=== PATIENT | male | born 1945 | race Caucasian/White ===

== ENCOUNTER 2017-09-22 07:14 | Day surgery (SDC) | payer MEDICARE ==
[~2017-09-22 07:14] MED LIST: ASPI325 PO; ATOR20 PO; BLOOD PRESSURE; CHOL10002 PO; DIABETIC; FURO40 PO; LISI5 PO; MELA3 PO; METF500 PO; MULVIT PO; POTCHL20ER PO
== END 2017-09-22 22:39 | disposition home or self-care (01) ==
LOC: ATC 07:14
DX: I12.9 Hypertensive chronic kidney disease with stage 1 through stage 4 chronic kidney disease, or unspecified chronic kidney disease (principal); E11.22 Type 2 diabetes mellitus with diabetic chronic kidney disease; N18.4 Chronic kidney disease, stage 4 (severe); D63.1 Anemia in chronic kidney disease; N25.81 Secondary hyperparathyroidism of renal origin; E86.9 Volume depletion, unspecified; E78.00 Pure hypercholesterolemia, unspecified
CPT/HCPCS: 36415; 36430; 86850; 86870; 86900; 86901; 86922; 96374; J1940; J7030; P9016

== ENCOUNTER → 2018-03-16 | Outpatient (CLI) | payer MEDICARE ==
[2018-03-16 16:48] LABS: Percent Saturation 27.4 % (20.0-50.0)
== END | disposition home or self-care (01) ==
LOC: LAB SHORT 15:39 → LAB 15:39
PROVIDERS: Internal Medicine Hematology & Oncology
DX: D50.9 Iron deficiency anemia, unspecified (principal)
CPT/HCPCS: 82728; 83540; 83550

== ENCOUNTER 2019-07-13 15:35 | Inpatient (IN) | payer MEDICARE ==
[~2019-07-13] VITALS: Ht 165.1 cm; Wt 52.1 kg
[~2019-07-13 15:35] MED LIST changes: -ASPI325 PO; +ASPI325EC PO; -CHOL10002 PO; +Daily Multiple1 EACH PO; -MULVIT PO; +VITAMIN D31000 UNI1 PO
[2019-07-13 16:38] LABS: BASOPHILS ABSOLUTE AUTO 0.04 K/mm3 (0.00-0.23); BASOPHILS PERCENT AUTO 1 % (0-2); EOSINOPHILS ABSOLUTE AUTO 0.04 K/mm3 (0.00-0.68); EOSINOPHILS PERCENT AUTO 1 % (0-6); Hematocrit 40.2 % (37.0-53.0); Hemoglobin 13.5 g/dL (13.5-17.5); IMMATURE GRAN ABSOLUTE AUTO 0.01 K/mm3 (0.00-0.10); IMMATURE GRAN PERCENT AUTO 0 % (0-1); LYMPHOCYTES ABSOLUTE AUTO 0.66 K/mm3 (0.84-5.20); LYMPHOCYTES PERCENT AUTO 15 % (21-46); MONOCYTES ABSOLUTE AUTO 0.34 K/mm3 (0.16-1.47); MONOCYTES PERCENT AUTO 8 % (4-13); Mean Corpuscular HGB 35.3 pg (26.0-34.0); Mean Corpuscular HGB Conc 33.6 g/dL (31.5-36.5); Mean Corpuscular Volume 105 fL (80-100); Mean Platelet Volume 9.5 fL (9.1-12.4); NEUTROPHILS ABSOLUTE AUTO 3.37 K/mm3 (1.96-9.15); NEUTROPHILS PERCENT AUTO 76 % (41-73); Platelet Count 198 K/mm3 (150-400); RDW Coefficient Variation 12.9 % (11.7-14.2); RDW Standard Deviation 49.9 fL (35.1-46.3); Red Blood Cell Count 3.82 M/mm3 (4.30-5.90); White Blood Cell Count 4.46 K/mm3 (4.00-11.30)
[2019-07-13 17:01] LABS: Troponin I 0.02 ng/mL (0.000-0.040)
[2019-07-13 17:16] LABS: Albumin, Blood 4.8 g/dL (3.4-5.0); Albumin/Globulin Ratio 1.1 (0.8-1.8); Bilirubin, Total 0.7 mg/dL (0.1-1.0); Bun/Creatinine Ratio 15.2 (12.0-20.0); Calcium, Blood 5.9 mg/dL (8.5-10.1); Creatinine, Blood 3.41 mg/dL (0.60-1.20); Globulin, Blood 4.5 g/dL (2.2-4.0); Potassium, Blood 5.2 mmol/L (3.5-5.5); Total Protein, Blood 9.3 g/dL (6.4-8.2)
[2019-07-13] MEDS ORDERED: AMLODIPINE BESYL5 MG PO (18:21)
[2019-07-13 18:35] LABS: Magnesium, Blood 2.5 mg/dL (1.6-2.4); Phosphorus, Blood 4.1 mg/dL (2.5-4.9)
[2019-07-13 18:48] LABS: CPK Creatine Kinase 268 U/L (39-308)
[2019-07-13] MEDS ORDERED: LOVASTATIN20 MG PO (19:03)
[2019-07-13] MEDS ORDERED: FUROSEMIDE40 MG PO (19:03)
[2019-07-13 20:26] LABS: Source, Urine Clean Catch
[2019-07-13 20:29] LABS: Bilirubin, Urine Neg (Neg); Blood, Urine 3+ (Neg); Glucose Qualitative, Urine Neg (Neg); Ketones, Urine 1+ (Neg); Leukocyte Esterase, Urine Neg (Neg); Nitrite, Urine Neg (Neg); Protein, Urine 4+ (Neg); Specific Gravity, Urine 1.015 (1.003-1.022); Urobilinogen, Urine NORM (Normal)
[2019-07-13 20:44] LABS: Appearance, Urine Clear (Clear); Color, Urine Yellow (P-Yellow)
[2019-07-13 20:45] LABS: Bacteria Mod /hpf; Squamous Epithelial Cells Rare /hpf (Few)
[2019-07-13 20:46] LABS: Granular Casts 0-2 /lpf (0)
--- NOTE | 2019-07-14 04:15 | NUR ---
SHIFT SUMMARY PT WAS NEW ER ADMIT THIS SHIFT (2099), NO ACUTE CHANGES SINCE ASSUMING CARE, A&O, NO C/O ANY KIND, SLEPT T/O NIGHT & AT THIS TIME, CALL LIGHT IN REACH, WILL CONT TO MONITOR UNTIL REPORT GIVEN TO DAY RN.
[2019-07-14 05:55] LABS: Creatinine, Blood 3.34 mg/dL (0.60-1.20); Potassium, Blood 4.6 mmol/L (3.5-5.5)
[2019-07-14] MEDS ORDERED: Lovastatin20 MG PO (14:46)
--- NOTE | 2019-07-14 18:13 | NUR ---
SHIFT SUMMARY PT AXO, PLEASANT AND COOPERATIVE WITH CARE THOUGH [place]. VSS THOUGH PT HYPERTENSIVE, DR LEAVITT NOTIFIED, MEDICATED PER EMAR. PT VOIDING IN URINAL INDEPENDENTLY. BLADDER SCAN PVR OF [address] GUERRERO CONSULTED, NEW ORDERS PLACED. IV PATENT AND SALINE LOCKED. BED IN LOW POSITION, CALL LIGHT WITHIN REACH. PT AND OT ORDERED, AWAITING EVAL AT THIS TIME. PT DENIES PAIN.
--- NOTE | 2019-07-15 04:19 | NUR ---
SHIFT SUMMARY PT HAS HAD NO ACUTE CHANGES THIS SHIFT, NO C/O ANY KIND, PT SLEEPING AT THIS TIME, CALL LIGHT IN REACH, WILL CONT TO MONITOR UNTIL REPORT GIVEN TO DAY RN.
[2019-07-15 04:45] LABS: Hemoglobin 12.7 g/dL (13.5-17.5)
[2019-07-15 05:01] LABS: Albumin, Blood 3.9 g/dL (3.4-5.0); Anion Gap 5 mmol/L (6-16); Blood Urea Nitrogen 47 mg/dL (8-24); Bun/Creatinine Ratio 15.1 (12.0-20.0); CO2, Blood 26 mmol/L (21-32); Chloride, Blood 105 mmol/L (98-108); Creatinine, Blood 3.12 mg/dL (0.60-1.20); Glomerular Filtration Rate 21 (60-); Glucose, Blood 80 mg/dL (70-99); Phosphorus, Blood 3.7 mg/dL (2.5-4.9); Potassium, Blood 5.1 mmol/L (3.5-5.5); Sodium, Blood 136 mmol/L (136-145)
--- NOTE | 2019-07-15 14:03 | NUR ---
BROUGHT TO PCU AT 1330 AFTER RAPID RESPONSE ON MEDICAL FLOOR. ASSUMED CARE, REPORT FROM KELLEN PRUETT. A/A/OX4 SITTING IN HIGH FOWLERS IN BED, DENIES CP, DIZZINESS, OR SOB AT THIS TIME. UPDATED ON PLAN OF CARE. REMAINS ON TELEMETRY, WILL CONTINUE TO MONITOR.
--- NOTE | 2019-07-15 14:37 | NUR ---
THIS NURSE NOTIFED BY [employer] [employer] AT 1300 THAT PATIENT HR WAS SUSTAINING IN THE 40'S. AT 1305 UI LEAD DEVELOPER CALLED THIS NURSE STATING THAT PATIENT HR WAS SUSTAINING IN THE 20'S. THIS NURSE IMMEDIATELY IN ROOM TO ASSESS PATIENT. PT DENIED DIZZINESS, WAS AXO AND STATED THAT HE "FELT PRETTY GOOD." VSS MEASURED 97.9, 43, 16, 124/69, 98% ON RA. CHARGE NURSE NOTIFIED IMMEDIATELY WHO WAS ALSO IN ROOM AT THAT TIME. DR LEAVITT IN ROOM AT 1313. CLONIDINE DC'D. SEE DR. LEAVITT'S ORDERS. , RAPID RESPONSE CALLED THEN CANCELLED. PT TRANSFERRED TO [facility] AT 1321. VS AT 1316, 124/69, 42, 100% ON 2L O2 VIA NC. PATIENT'S PRIMARY NURSE NOTIFIED OF EVENTS WHEN HE RETURNED FROM [facility] AT 1310 WHO WAS ALSO PRESENT AT TRANSFER OF PT TO PCU.
--- NOTE | 2019-07-15 15:25 | NUR ---
1321 PT TRANSFERED WITH DEFIBRILATOR ON BED TO [facility] WITH SPRING INTERN, ICU CN AND THIS RN. REPORT GIVEN AT BEDSIDE TO COMPUTER PROJECT MANAGER. 1345 AGATHA, PT'S NEICE NOTIFIED OF CHANGE IN STATUS PER PT REQUEST.
--- NOTE | 2019-07-15 17:39 | NUR ---
SHIFT SUMMARY; BROUGHT TO PCU FROM MEDICAL FLOOR AFTER RAPID RESPONSE CALLED THIS AFTERNOON. A/A/OX4 ON ARRIVAL. BRAYCARDIA ON MEDICAL FLOOR WITH RATE DECREASING TO 29 FOR APPROX 1 MIN. ATROPINE GIVEN IN AFTER ARRIVAL TO PCU PER ORDERS FOR HR OF 34. HR INCREASED TO 45-60 POST ATROPINE AND REMAINED THERE THROUGHOUT AFTERNOON. DENIES DIZZINESS, SOB, OR CHEST PAIN. WILL CONTINUE TO MONITOR UNTIL SHIFT CHANGE.
[2019-07-15 20:21] LABS: Bun/Creatinine Ratio 16.6 (12.0-20.0); Calcium, Blood 8.4 mg/dL (8.5-10.1); Creatinine, Blood 3.19 mg/dL (0.60-1.20); Magnesium, Blood 2.4 mg/dL (1.6-2.4); Potassium, Blood 5.8 mmol/L (3.5-5.5)
--- NOTE | 2019-07-15 23:52 | NUR ---
WILL REPORT OFF TO AMADA SPARKS . ASSUMED CARE AT 1900. 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 AWARE ASYMPTOMATIC. . LOWEST HR NOTED WHEN ASLEEP WAS 29-37. BP WNL. NO ACUTE DISCOMFORT OR COMPLAINTS,.
[2019-07-16 03:50] LABS: Hematocrit 34.3 % (37.0-53.0); Hemoglobin 11.5 g/dL (13.5-17.5)
[2019-07-16 04:12] LABS: Albumin, Blood 3.5 g/dL (3.4-5.0); Anion Gap 6 mmol/L (6-16); Blood Urea Nitrogen 54 mg/dL (8-24); Bun/Creatinine Ratio 16.1 (12.0-20.0); CO2, Blood 25 mmol/L (21-32); Calcium, Blood 9.2 mg/dL (8.5-10.1); Chloride, Blood 104 mmol/L (98-108); Creatinine, Blood 3.35 mg/dL (0.60-1.20); Glomerular Filtration Rate 19 (60-); Glucose, Blood 102 mg/dL (70-99); Magnesium, Blood 2.4 mg/dL (1.6-2.4); Phosphorus, Blood 4.9 mg/dL (2.5-4.9); Potassium, Blood 5.5 mmol/L (3.5-5.5); Sodium, Blood 135 mmol/L (136-145)
--- NOTE | 2019-07-16 07:25 | NUR ---
AM ASSESSMENT: Pt resting in bed. Denies pain, SOB, CP or dizziness. States that he is feeling pretty good. HR shows 2nd degree heart block type 1 in a rate of the 50's at this time. States that he feels fine. LS clear. BT positive. Pulses palp. Call light in reach. Pt made NPO for possible pacer. Denies questions or concerns at this time.
--- NOTE | 2019-07-16 19:45 | NUR ---
Shift summary: Pt resting in bed at this time. Pt HR has remained in a 2 degree type 1 HB throughout the shift. Was kept NPO for possible pacer this am. Pt K level was also very elevated. Was treated per orders and Pt and his niece agreed for him to start dialysis today. Order for permacath was placed and Dr. Benz was consulted. Pacemaker placment was changed to tomorrow so permacath could be placed today. Pt was taken to [facility] center around 1640 for placement. Returned around 1800 to room with permacath to r chest wall. NO bleeding, oozing, bruising noted. Pt denies pain. Pt was given dinner. VSS. States that he is feeling much better and is in good spirits. Report given to night RN and care transfered.
--- NOTE | 2019-07-16 20:48 | NUR ---
PERMA CATH PROCEDURE COMPLETE AND FREQ POST PROCUDURE VS WNL . RA. NO O2 SECOND DEGREE HB TYPE 1 RATE RANGE 30-50. RT CHEST WALL DSG DRY AND INTACT. DENIES PAIN IN SURG SITE. NO SWELLING, CREPITUS, BLEEDING.DENIES DIZZINESS OR ADVERSE AFFECTS W/ LOW HR. ON BED REST FOR THIS EVALUATION.
[2019-07-17 01:09] LABS: Hematocrit 31.9 % (37.0-53.0); Hemoglobin 10.5 g/dL (13.5-17.5)
[2019-07-17 01:24] LABS: Albumin, Blood 3.4 g/dL (3.4-5.0); Anion Gap 6 mmol/L (6-16); Blood Urea Nitrogen 56 mg/dL (8-24); Bun/Creatinine Ratio 16.4 (12.0-20.0); CO2, Blood 26 mmol/L (21-32); Calcium, Blood 8.8 mg/dL (8.5-10.1); Chloride, Blood 106 mmol/L (98-108); Creatinine, Blood 3.42 mg/dL (0.60-1.20); Glomerular Filtration Rate 19 (60-); Glucose, Blood 138 mg/dL (70-99); Magnesium, Blood 2.4 mg/dL (1.6-2.4); Phosphorus, Blood 5.6 mg/dL (2.5-4.9); Potassium, Blood 5.6 mmol/L (3.5-5.5); Sodium, Blood 138 mmol/L (136-145)
--- NOTE | 2019-07-17 06:59 | NUR ---
SHIFT SUMMAARY. OOB AT EDGE OF BED X 2 THRU NOC TO VOUD IN URINAL. HR JUMP 35-70'S AND REPORTS NO DIZZINESS AND NO DIZZINESS SAME QUICK DROP IN REVERSE WHEN LIES DOWN. ALWAYS STAFF MONITORING WHEN UP , AND AWARE TO CALL. OOB TO BR FOR BM AND NO REPORT OF DIZZINESS. DOZING AT LONG INTERVALS THRU NOC. SAME RHYTHM ALL NOC,.PERMA CATH SITE WNL, DSG DRY AND INTACT. NPO SINCE MIDNOC.DR GUERRERO HERE NOW AND NO ORDERS , TOLD PT HE WILL HAVE DIALYSIS THIS AM BUT NO TIME YET.
[2019-07-17 08:30] LABS: Creatinine, Blood 3.4 mg/dL (0.60-1.20); Potassium, Blood 5.5 mmol/L (3.5-5.5)
--- NOTE | 2019-07-17 18:55 | NUR ---
SHIFT SUMMARY PT A&Ox4; CALM AND COOPERATIVE WITH CARE. PT RESTING IN BED DURING SHIFT. PT TO DIALYSIS THIS AM, PERMACATH IN RIGHT CHEST WALL, NO BLEEDING OR BRUISING NOTED, PLACED 07/15. PT TO HOT MIX OPERATOR FOR PACEMAKER PLACEMENT. SLING IN PLACE FROM CATH LA; MINIMAL DRAINAGE NOTED AT LEFT CHEST WALL SITE. PT DENIES PAIN, CHEST PAIN/PRESSURE, SOB, NAUSEA AND DIZZINESS. VSS. NO OHTER ACUTE CHANGES NOTED. REPORT GIVEN TO ONCOMING RN.
--- NOTE | 2019-07-18 05:14 | NUR ---
SHIFT SUMMARY: PATIENT RIGHT CHEST WALL PERMACATH SITE IS C/D/I, NO SIGN OF HEMATOMA, BLEEDING OR INFECTION NOTED. DISTAL PULSES INTACT, SKIN WARM AND PINK WITH INTACT SENSATIONS. LEFT CHEST WALL DRESSING FROM PACER PLACEMENT HAS A SMALL AMOUNT OF BLOOD ON DRESSING, NO SIGN OF HEMATOMA OR INFECTION NOTED. ALL PULSES AND SENSATIONS DISTAL TO SITE INTACT, SKIN WARM AND PINK WITH CAPILLARY REFILL <3 SECOUNDS ON BILATERAL HANDS/FINGERS. PATIENT SLING IN PLACE ON LEFT ARM, SOME TENDERNESS AT SURGICAL SITE PER PATIENT. SOME ISSUES WITH SBP RESOLVED WITH MEDICATION PER EMAR, ALL OTHER VSS, CALL LIGHT WITHIN REACH, BED LOW AND LOCKED.
[2019-07-18 06:23] LABS: Albumin, Blood 3.4 g/dL (3.4-5.0); Anion Gap 4 mmol/L (6-16); Blood Urea Nitrogen 26 mg/dL (8-24); Bun/Creatinine Ratio 9.7 (12.0-20.0); CO2, Blood 31 mmol/L (21-32); Calcium, Blood 8.5 mg/dL (8.5-10.1); Chloride, Blood 103 mmol/L (98-108); Creatinine, Blood 2.67 mg/dL (0.60-1.20); Glomerular Filtration Rate 25 (60-); Glucose, Blood 110 mg/dL (70-99); Phosphorus, Blood 2.8 mg/dL (2.5-4.9); Potassium, Blood 4.3 mmol/L (3.5-5.5); Sodium, Blood 138 mmol/L (136-145)
[2019-07-18 07:09] LABS: HBSAG SCREEN Negative (Negative); HEP A AB, IGM Negative (Negative); HEP B CORE AB, IGM Negative (Negative); HEP C VIRUS AB <0.1 (0.0-0.9)
--- NOTE | 2019-07-18 18:42 | NUR ---
SHIFT SUMMARY PT A&Ox3; CALM AND COOPERATIVE WITH CARE. PT SBA TO CHAIR FOR MEALS. PT EDUCATED ON POST PACEMAKER INSTRUCTIONS, LEFT ARM REMAINS IN SLING AND PT REMINDER T/O SHIFT NOT TO USE. PT HAD EDMUNDO EPISODE OF NAUSEA DURING SHIFT BOTH WITH MINIMAL AMOUNT OF EMESIS; MEDICATED x1 WITH ZOFRAN THIS AFTERNOON, PT DENIES THIS AM. PT DENIES PAIN, CHEST PAIN/PRESSURE, SOB, AND DIZZINESS. PERMA CATH TO RIGHT CHEST WALL C/D/I; NO DIALYSIS TODAY. PACEMAKER TO LEFT CHEST WALL, DRESSING HAS MINIMAL DRAINAGE; PLANS TO CHANGES DRESSING PRIOR TO DISCHARGE PER DR ARORA. ELEVATED BP NOTED, MEDICATED WITH SCHEDULED MEDICATIONS. OTHER VSS. NO OTHER ACUTE CHANGES NOTED. WILL CONTINUE TO MONITOR UNTIL REPORT GIVEN TO ONCOMING RN.
[2019-07-19 04:10] LABS: Hematocrit 30.1 % (37.0-53.0)
[2019-07-19 04:30] LABS: Albumin, Blood 3.2 g/dL (3.4-5.0); Anion Gap 5 mmol/L (6-16); Blood Urea Nitrogen 25 mg/dL (8-24); Bun/Creatinine Ratio 8.9 (12.0-20.0); CO2, Blood 30 mmol/L (21-32); Calcium, Blood 9.4 mg/dL (8.5-10.1); Chloride, Blood 105 mmol/L (98-108); Creatinine, Blood 2.81 mg/dL (0.60-1.20); Glomerular Filtration Rate 23 (60-); Glucose, Blood 93 mg/dL (70-99); Phosphorus, Blood 3.1 mg/dL (2.5-4.9); Potassium, Blood 4.6 mmol/L (3.5-5.5); Sodium, Blood 140 mmol/L (136-145)
--- NOTE | 2019-07-19 05:17 | NUR ---
SHIFT SUMMARY: PATIENT USING LEFT ARM OFTEN EVEN WITH SLING IN PLACE, EDUCATED ON POSSIBILITY OF LEAD DISLODGING AND DAMAGE TO SURGICAL SITE, PATIENT STILL USING LEFT ARM. PATIENT SLEPT WELL THIS SHIFT, SBP HIGH (SEE EMAR), BED LOW AND LOCKED, CALL LIGHT WITHIN REACH.
--- NOTE | 2019-07-19 16:01 | NUR ---
Patient is sitting up in bed and alert. Patient immediately tells me about his belief system, his family/friend support system and his medical conditions. Patient tells me his concerns moving forward and also about the peace he has because he and God "are on good terms." I listen empathically, and provide pastoral job counselor and prayer. Patient responds well and shows signs of reduced stress. I will continue to remain available to patient and family.
--- NOTE | 2019-07-19 17:05 | NUR ---
SHIFT NOTE PT WITH INTACT AND DRY DRESSING TO PERMACATH AND PACER BANDAGE, NO NEW DRAINAGE NOTED. PT ALERT ANSWERING QUESTIONS APPROPRIATELY. PT DID NOT GO FOR DIALYSIS TODAY, WILL BE REASSESSED BY DR GUERRERO TOMORROW FOR POSSIBLE DIALYSIS TOMORROW. PT HAS BEEN RESTING W/O CP OR SOB FOR THE DAY.
[2019-07-20 05:07] LABS: Hematocrit 28.2 % (37.0-53.0)
[2019-07-20 05:30] LABS: Albumin, Blood 3.2 g/dL (3.4-5.0); Anion Gap 1 mmol/L (6-16); Blood Urea Nitrogen 33 mg/dL (8-24); Bun/Creatinine Ratio 10.4 (12.0-20.0); CO2, Blood 31 mmol/L (21-32); Calcium, Blood 9.6 mg/dL (8.5-10.1); Chloride, Blood 105 mmol/L (98-108); Creatinine, Blood 3.17 mg/dL (0.60-1.20); Glomerular Filtration Rate 20 (60-); Glucose, Blood 113 mg/dL (70-99); Phosphorus, Blood 3.1 mg/dL (2.5-4.9); Potassium, Blood 5.3 mmol/L (3.5-5.5); Sodium, Blood 137 mmol/L (136-145)
--- NOTE | 2019-07-20 05:35 | NUR ---
SHIFT SUMMARY: PATIENT SLEPT WELL THIS SHIFT, NO ISSUES NOTED, BLOOD PRESSURE IMPROVING. CALL LIGHT WITHIN REACH, BED LOW AND LOCKED.
[2019-07-20] MEDS ORDERED: CALC.25 PO (09:11)
[2019-07-20] MEDS ORDERED: Isosorbide Mono30 MG PO (09:12)
[2019-07-20] MEDS ORDERED: HYDRA25 PO (09:12)
[2019-07-20 11:33] LABS: Creatinine, Blood 3.06 mg/dL (0.60-1.20); Potassium, Blood 5.6 mmol/L (3.5-5.5)
--- NOTE | 2019-07-20 12:01 | NUR ---
Call to Dr. Chua regarding the requested labs, which he said he had already received, and that the pt is to be dialyzed today before discharge. Talked then with Bob Ashford in dialysis center, who confirmed that he had also spoken with the doctor and that dialysis will be done before discharge today.
[2019-07-20] MEDS ORDERED: Aspir 8181 MG PO (13:08)
--- NOTE | 2019-07-20 16:35 | NUR ---
PT EXPRESSED UNDERSTANDING OF DC TEACHING, UDNERSTANDS INSTRUCTIONS FOR FOLLOW UP, UNDERSETANDS NEW MEDCIATIONS AND THAT MEDCIATIONS HAVE BEEN CALLED INTO [facility]. IV REMOVED AND PRESSURE DRESSED. PT OTD bindu TRAVIS AND ALL BELONGINGS
== END 2019-07-20 16:37 | disposition home health service (06) | DRG 242 ==
LOC: ER 15:35 → MEDS 15:36 → PCU 07-14 15:13 → MEDS 07-14 15:13 → ENPENDDIS 07-15 11:45 → PCU 07-15 13:29
PROVIDERS: Emergency Medicine; Internal Medicine Interventional Cardiology; Internal Medicine Nephrology; Physician Assistant; ADMIT Internal Medicine
PROC: 0JH63XZ Insertion of Tunneled Vascular Access Device into Chest Subcutaneous Tissue and Fascia, Percutaneous Approach (ICD-10-PCS; 2019-07-16)
PROC: 02HV33Z Insertion of Infusion Device into Superior Vena Cava, Percutaneous Approach (ICD-10-PCS; 2019-07-16)
PROC: B5181ZA Fluoroscopy of Superior Vena Cava using Low Osmolar Contrast, Guidance (ICD-10-PCS; 2019-07-16)
PROC: 5A1D70Z Performance of Urinary Filtration, Intermittent, Less than 6 Hours Per Day (ICD-10-PCS; 2019-07-16)
PROC: 0JH606Z Insertion of Pacemaker, Dual Chamber into Chest Subcutaneous Tissue and Fascia, Open Approach (ICD-10-PCS; principal; 2019-07-17)
PROC: 02HK3JZ Insertion of Pacemaker Lead into Right Ventricle, Percutaneous Approach (ICD-10-PCS; 2019-07-17)
PROC: 02H63JZ Insertion of Pacemaker Lead into Right Atrium, Percutaneous Approach (ICD-10-PCS; 2019-07-17)
DX: I44.1 Atrioventricular block, second degree (principal); N18.6 End stage renal disease; E87.1 Hypo-osmolality and hyponatremia; N25.81 Secondary hyperparathyroidism of renal origin; N17.9 Acute kidney failure, unspecified; I13.2 Hypertensive heart and chronic kidney disease with heart failure and with stage 5 chronic kidney disease, or end stage renal disease; I50.20 Unspecified systolic (congestive) heart failure; E83.51 Hypocalcemia; I25.10 Atherosclerotic heart disease of native coronary artery without angina pectoris; Z87.891 Personal history of nicotine dependence; Z95.1 Presence of aortocoronary bypass graft; M81.0 Age-related osteoporosis without current pathological fracture; I16.0 Hypertensive urgency; E11.22 Type 2 diabetes mellitus with diabetic chronic kidney disease; E86.9 Volume depletion, unspecified; E88.09 Other disorders of plasma-protein metabolism, not elsewhere classified; E87.5 Hyperkalemia; Z79.84 Long term (current) use of oral hypoglycemic drugs; Z99.2 Dependence on renal dialysis
CPT/HCPCS: 33208; 36415; 36558; 70450; 71045; 71046; 76770; 76937; 80048; 80053; 80069; 80074; 81001; 82306; 82310; 82330; 82550; 82565; 82947; 83036; 83735; 83970; 84100; 84132; 84484; 85014; 85018; 85025; 86317; 87086; 93005; 93010; 93306; 96365; 96372; 96375; 97161; 97165; 97535; 99152; 99153; 99285-25; A9270-GY; C1750; C1769; C1785; C1894; C1898; G0378; J0360; J0461; J0610; J0690; J0881; J1644; J1650; J1815; J2250; J2405; J3010; J7040; J7042; J7050; J7799

== ENCOUNTER 2019-10-31 14:15 | Day surgery (SDC) | payer MEDICARE ==
[~2019-10-31] VITALS: Ht 165.1 cm; Wt 53.5 kg
[~2019-10-31 14:15] MED LIST changes: +AMLODIPINE BESYL5 MG PO; +Aspir 8181 MG PO; +CALC.25 PO; +CLOP75 PO; +FUROSEMIDE40 MG PO; +HYDRA25 PO; +Isosorbide Mono30 MG PO; +LOVASTATIN20 MG PO; +Lovastatin20 MG PO
--- NOTE | 2019-10-31 19:23 | NUR ---
PT ARRIVED IN THE UNIT FROM HEART CENTER. POST AV FISTULA BANDING RIGHT RADIAL ARTERY ACCESS SITE. TR BAN IN [place] WITH 10CC OF AIR, NO HEMATOMA OR BLEEDING NOTED, FISTULA DRESSING CDI. PERMCATH ON RUC CDI. PT ALERT AND ORIENTED AT BASELINE, [facility]. VITALS STABLE HRR PACED AT 60'S, BP SYSTOLIC 115'S, SATS ABOVE 95% ON RA, AFEBRILE. REPORT GIVEN TO ONCOMING SHIFT
== END 2019-10-31 22:44 | disposition home or self-care (01) ==
LOC: MHTC 14:15 → PCU 18:21 → MHTC 22:44
DX: I12.0 Hypertensive chronic kidney disease with stage 5 chronic kidney disease or end stage renal disease (principal); E11.22 Type 2 diabetes mellitus with diabetic chronic kidney disease; E78.5 Hyperlipidemia, unspecified; N18.6 End stage renal disease; I25.10 Atherosclerotic heart disease of native coronary artery without angina pectoris; Z99.2 Dependence on renal dialysis; Z87.891 Personal history of nicotine dependence; Z79.82 Long term (current) use of aspirin; Z79.84 Long term (current) use of oral hypoglycemic drugs; Z79.899 Other long term (current) drug therapy
CPT/HCPCS: 36902; 37607; 75710; 76937; 99152; 99153; C1725; C1769; C1894; J1644; J2250; J3010; J7030; Q9967